=== PATIENT | male | born 1940 | race Caucasian/White ===

== ENCOUNTER 2021-11-12 17:40 | Emergency (ER) | payer MEDICARE, SELFPAY ==
[2021-11-12 17:50] VITALS: BP 121/74; PULSE 76; RESP 18; TEMP 36.8; O2SAT 98; BMI 30.3
--- NOTE | 2021-11-12 18:08 | HMH.EDUTC ---
[facility] [place] Clinical Impression: Sinusitis Qualifiers: Sinusitis location: unspecified location Chronicity: acute Recurrence: non-recurrent Qualified Code(s): J01.90 - Acute sinusitis, unspecified Disposition: Home, Self-Care Condition on Discharge: Good Instructions: DI for Sinusitis Additional Instructions: Drink plenty of fluids. Take tylenol or ibuprofen for pain or fever. Take the medications as directed. Follow up with your regular doctor. GO TO THE ER FOR ANY WORSENING SYMPTOMS Don't start the oral steroids until tomorrow, since you had the shot here today. Prescriptions: Benzonatate [Benzonatate 100mg cap] 100 mg PO TIDP PRN #30 cap PRN Reason: Cough Transmission Status: Received by [id number] methylPREDNISolone [Medrol] 4 mg PO DIRECTED 6 Days #21 packet Transmission Status: Received by [id number] Azithromycin [Z-Yash 250mg Tab*] 250 mg PO UD DOSE PK #6 tab Transmission Status: Received by [id number] Referrals: Lauren Sprague MD [Primary Care Provider] - Time of Disposition: 18:44 Medical Decision Making - Medical Records Medical records reviewed: No: I reviewed the patient's medical records. - Yaakov Inquiry Pt receiving controlled substance: No Vital Signs: 11/12/21 17:50 11/12/21 18:09 Temperature 98.2 F 98.2 F Temperature Source Oral Pulse Rate 76 Pulse Rate [Right Brachial] 76 Respiratory Rate 18 18 Blood Pressure 121/74 Blood Pressure [Right Arm] 121/74 Blood Pressure Mean [Right Arm] 89 Blood Pressure Source [Right Arm] Automatic Cuff Blood Pressure Position [Right Arm] Sitting 02 Sat by Pulse Oximetry 98 Oxygen Delivery Method Room Air Orders (Tests/Meds): ED MEDICATIONS Discontinued Medications Generic Name Dose Route Start Last Admin Trade Name Freq PRN Reason Stop Dose Admin Dexamethasone Sodium Phosphate 8 mg 11/12/21 18:17 11/12/21 18:25 Dexamethasone 4mg/Ml 1ml Vial IM 11/12/21 18:18 8 mg ONCE ONE Administration [facility] [place] - General Stated complaint: sore throat,runny nose cough kelley Time Seen by Provider: 11/12/21 18:08 Mode of Arrival: Ambulatory Source of Information: Patient Limitations: No Limitations Description of Symptoms (Recalled from Triage Doc. by RN): PATIENT C/O COUGH, CONGESTION, AND RUNNY NOSE X 3 DAYS HEENT Symptoms (Recalled from RN notes): Yes Resp Symptoms (Recalled from RN notes): Yes Skin Symptoms (Recalled from RN notes): No MS Symptoms (Recalled from RN notes): No Functional Status (Recalled from RN notes): WNL - History of Present Illness Provider Complaint: He c/o sinus congestion and a cough for the past 3 days. Onset (ago): minute(s) - Related Data Previous Rx's Medication Instructions Recorded Azithromycin [Z-Yash 250mg Tab*] 250 mg PO UD DOSE PK #6 tab 11/12/21 Benzonatate [Benzonatate 100mg 100 mg PO TIDP PRN #30 cap 11/12/21 cap] methylPREDNISolone [Medrol] 4 mg PO DIRECTED 6 Days #21 11/12/21 packet Allergies Allergy/AdvReac Type Severity Reaction Status Date / Time No Known Allergies Allergy Verified 11/12/21 18:07 - Worker's Comp Is this a Worker's Comp case?: No [facility] [place] History - Hepatitis A Screen Attestation statement:: This patient has been screened for Hepatitis A risk factors. I have reviewed the patient's past medical history: Yes - Social History Alcohol Intake: never Occupational Status: other ROS Obtained: Yes All systems reviewed & no additional complaints - Constitutional Constitutional: Reports chills, Denies fever(s), Reports poor appetite, Reports malaise - Eyes Eyes: Denies eye discharge - ENT Ears, Nose, Mouth, and Throat: Reports as per HPI - Cardiovascular Cardiovascular: Denies chest pain - Respiratory Respiratory: Denies chest congestion, Reports cough Physical Exam - General General appearance: alert, in no apparent distress - Head Head exam: atraumat
[2021-11-12 18:09] VITALS: BP 121/74; PULSE 76; RESP 18; TEMP 36.8; O2SAT 98
== END 2021-11-12 18:48 | disposition home or self-care (01) ==
PROVIDERS: Emergency Provider Nurse Practitioner Family; PCP Family Medicine
DX: J01.90 Acute sinusitis, unspecified (principal)
CPT/HCPCS: 96372; 99212; G0463

== ENCOUNTER 2021-11-26 02:29 | Emergency (ER) | payer MEDICARE, SELFPAY ==
[2021-11-26] VITALS (7 sets, daily range): BP systolic 116–134; BP diastolic 60–80; PULSE 69–82; RESP 15–19; TEMP 36.7–36.8; O2SAT 98–100; BMI 30.8
--- NOTE | 2021-11-26 02:46 | ECG_ITS ---
APPROVED REPORT Exam: Resting ECG HR:76 bpm ECG Measurements Heart Rate 76 AXES NC 213 P 14 QRSd 140 QRS 2 QT 408 T -1 QTc 438 Conclusion SINUS RHYTHM WITH FIRST DEGREE AV BLOCK RIGHT BUNDLE BRANCH BLOCK [120+ ms QRS DURATION, UPRIGHT V1, 40+ ms S IN I/aVL/V4/V5/V6] ABNORMAL ECG UNCONFIRMED REPORT Electronically signed by : Dioni Sauer MD 11/26/2021 09:48:16
--- NOTE | 2021-11-26 02:55 | XR_ITS ---
PROCEDURE INFORMATION: Exam: XR Chest Exam date and time: 11/26/2021 3:17 AM Age: 81 years old Clinical indication: Cough; Sternal or substernal pain; Additional info: Cough, chest pain TECHNIQUE: Imaging protocol: XR of the chest. Views: 1 view. COMPARISON: No relevant prior studies available. FINDINGS: Lungs: Nonspecific bibasilar opacities, favoring atelectasis or pneumonia. Pleural spaces: No pleural effusion. No pneumothorax. Heart/Mediastinum: Unremarkable cardiomediastinal silhouette. Bones/joints: No acute osseous findings. IMPRESSION: Nonspecific bibasilar opacities, favoring atelectasis or pneumonia. Recommend imaging follow-up until complete resolution.
[2021-11-26 03:06] LABS: Coronavirus 19, PCR Not Detected (NotDetected); Influenza A, PCR Not Detected (NotDetected); Influenza B, PCR Not Detected (NotDetected)
[2021-11-26 03:06] LABS: Basophils # 0.3 K/mm3 (0-0.2); Basophils % 2.6 % (0.1-2.0); Eosinophils # 0.1 K/mm3 (0.0-0.4); Eosinophils % 0.4 % (0.1-12.0); Hemoglobin 12.8 g/dL (14.1-18.0); Lymphocytes # 1.4 K/mm3 (0.7-4.5); Lymphocytes % 11.5 % (10-50); Mean Corpuscular HGB Conc 33.8 g/dL (31.8-35.4); Mean Corpuscular Hemoglobin 30.2 pg (27.0-31.2); Mean Corpuscular Volume 89.4 fl (80-94); Mean Platelet Volume 7.2 fl (7.4-10.4); Monocytes # 0.7 K/mm3 (0.1-1.0); Monocytes % 5.8 % (1.7-9.3); Neutrophils # 9.7 K/mm3 (1.8-7.8); Neutrophils % 79.6 % (37.0-80.0); Platelet Count 202 K/mm3 (142-424); Red Blood Count 4.25 M/mm3 (4.60-6.20); Red Cell Distribution Width 14.4 % (11.5-17.5); White Blood Count 12.1 K/mm3 (4.8-10.8)
[2021-11-26 03:08] LABS: Chloride 100 mmol/L (98-107); Potassium 4.4 mmoL/L (3.5-5.1); Sodium 131 mmol/L (136-145)
[2021-11-26 03:10] LABS: Alanine Aminotransferase 32 U/L (12-78); Aspartate Amino Transferase 67 U/L (17-59); Bilirubin,Total 0.3 mg/dl (0.2-1.3); Blood Urea Nitrogen 68 mg/dl (9-20); Creatinine Clearance Estimated 20 mL/min (50-200); Estimated Glomerular Filt Rate 13 ml/min (>60)
[2021-11-26 03:11] LABS: Albumin Level 4.1 g/dl (3.5-5.0); Albumin/Globulin Ratio 1.3 (1.1-1.8); Alkaline Phosphatase 88 U/L (38-126); Anion Gap 15.4 mEq/L (5-15); Carbon Dioxide 20 mmol/L (22.0-30.0); Globulin 3.2 g/dL (1.3-3.2); Glucose 126 mg/dl (74-100); Lipase 319 U/L (23-300); Total Protein,Serum 7.3 g/dl (6.3-8.2)
--- NOTE | 2021-11-26 03:11 | HMH.EDGENADL ---
ED Disposition Clinical Impression: NSTEMI (non-ST elevated myocardial infarction), ESCOBAR (acute kidney injury) Disposition: Xfer Short-Term Hosp Condition on Discharge: Good Referrals: Lauren Sprague MD [Primary Care Provider] - - Critical Care Critical Care Time: No Attestation: On 11/26/21, the high probability of a clinically significant, sudden or life threatening deterioration of the following system(s) required my full and direct attention, intervention and personal management. The time I documented below is in addition to time spent performing reported procedures but includes the following listed in this critical care notation. Medical Decision Making - Medical Records Medical records reviewed: Yes: I reviewed the patient's medical records. - Yaakov Inquiry Pt receiving controlled substance: No Vital Signs: 11/26/21 02:47 11/26/21 03:04 11/26/21 03:34 Temperature 98.2 F Temperature Source Oral Pulse Rate 74 75 Pulse Rate [Apical] 82 Respiratory Rate 18 18 Blood Pressure 116/60 126/66 Blood Pressure [Right Arm] 125/70 Blood Pressure Mean 74 Blood Pressure Mean [Right Arm] 88 Blood Pressure Source [Right Arm] Automatic Cuff Blood Pressure Position [Right Arm] Sitting 02 Sat by Pulse Oximetry 98 98 99 Oxygen Delivery Method Room Air 11/26/21 03:36 11/26/21 04:19 11/26/21 04:34 Temperature Temperature Source Pulse Rate 75 69 73 Pulse Rate [Apical] Respiratory Rate 18 15 19 Blood Pressure 117/64 134/80 117/74 Blood Pressure [Right Arm] Blood Pressure Mean 76 94 88 Blood Pressure Mean [Right Arm] Blood Pressure Source [Right Arm] Blood Pressure Position [Right Arm] 02 Sat by Pulse Oximetry 99 99 100 Oxygen Delivery Method - Lab Data Lab Results 11/26/21 02:48: WBC 12.1 H, RBC 4.25 L, Hgb 12.8 L, Hct 38.0 L, MCV 89.4, MCH 30.2, MCHC 33.8, RDW 14.4, Plt Count 202, MPV 7.2 L, Neut % (Auto) 79.6, Lymph % (Auto) 11.5, [place] % (Auto) 5.8, Eos % (Auto) 0.4, Baso % (Auto) 2.6 H, Neut # (Auto) 9.7 H, Lymph # (Auto) 1.4, [place] # (Auto) 0.7, Eos # (Auto) 0.1, Baso # (Auto) 0.3 H 11/26/21 02:48: Sodium 131 L, Potassium 4.4, Chloride 100, Carbon Dioxide 20 L, Anion Gap 15.4 H, BUN 68 H, Creatinine 4.50 H, Estimated Creat Clear 20, Estimated GFR 13 L*, Est GFR ( Amer) 15 L*, Glucose 126 H, Calcium 10.0, Total Bilirubin 0.3, AST 67 H, ALT 32, Alkaline Phosphatase 88, Troponin I 3.51 H, Total Protein 7.3, Albumin 4.1, Globulin 3.2, Albumin/Globulin Ratio 1.3, Lipase 319 H 11/26/21 02:56: SARS-CoV-2 (PCR) Not detected, Influenza A Untype (PCR) Not detected, Influenza Type B (PCR) Not detected 11/26/21 03:20: Lactate 0.7 11/26/21 03:30: Urine Color Yellow, Urine Appearance Sl cloudy, Urine pH 5.0, Ur Specific [place] >= 1.030, Urine Protein 1+, Urine Glucose (UA) Negative, Urine Ketones Negative, Urine Blood 3+, Urine Nitrate Negative, Urine Bilirubin Negative, Urine Urobilinogen 0.2, Ur Leukocyte Esterase Negative, Urine RBC 5-10, Urine WBC 3-5, Hyaline Casts 5-10, Coarse Granular Casts 5-10 11/26/21 04:45: Troponin I 2.00 H Result diagrams: 11/26/21 02:48 11/26/21 02:48 Orders (Tests/Meds): ED MEDICATIONS Generic Name Dose Route Start Last Admin Trade Name Freq PRN Reason Stop Dose Admin Clopidogrel Bisulfate 75 mg 11/27/21 00:01 Clopidogrel 75mg Tab PO 12/04/21 00:00 ONCE YAYO Sodium Chloride 500 mls @ 999 mls/hr 11/26/21 03:00 11/26/21 03:03 Sod Chlor 0.9% 1000ml Bag IV 11/26/21 03:30 999 mls/hr .Q31M YAYO Administration Heparin Sodium/Dextrose 500 mls @ 20 mls/hr 11/26/21 05:30 Heparin 25,000 Units In D5w 500ml Premix IV 12/26/21 05:29 .Q25H YAYO 1,000 UNITS/HR Discontinued Medications Generic Name Dose Route Start Last Admin Trade Name Freq PRN Reason Stop Dose Admin Aspirin 324 mg 11/26/21 02:58 11/26/21 03:02 Aspirin 81mg Chewable Tablet PO 11/26/21 02:59 324 mg ONCE ONE Administration [facility]
[2021-11-26 03:14] LABS: GFR (African American) 15 ML/MIN (>60)
[2021-11-26 03:24] LABS: Troponin I 3.51 ng/ml (0.00-0.034)
--- NOTE | 2021-11-26 03:25 | ECG_ITS ---
APPROVED REPORT Exam: Resting ECG HR:72 bpm ECG Measurements Heart Rate 72 AXES CO 231 P 24 QRSd 134 QRS 56 QT 411 T 15 QTc 435 Conclusion SINUS RHYTHM WITH FIRST DEGREE AV BLOCK RIGHT BUNDLE BRANCH BLOCK [120+ ms QRS DURATION, UPRIGHT V1, 40+ ms S IN I/aVL/V4/V5/V6] ABNORMAL ECG UNCONFIRMED REPORT Electronically signed by : Dioni Sauer MD 11/26/2021 09:48:13
--- NOTE | 2021-11-26 03:32 | PC.NURSE ---
Dr. Mireles on phone with Dr. Salazar
[2021-11-26 03:33] LABS: Lactic Acid 0.7 mmol/L (0.7-2.1)
[2021-11-26 03:35] LABS: Microscopic, Urine URINE MICROSCOPIC (MICROSCOPIC)
--- NOTE | 2021-11-26 03:39 | CT_ITS ---
PROCEDURE INFORMATION: Exam: CT Chest Without Contrast; Diagnostic Exam date and time: 11/26/2021 3:52 AM Age: 81 years old Clinical indication: Pain; Shortness of breath and other: General weakness, left-sided; Additional info: Epigastric pain, kidney injury, obstructive uropat TECHNIQUE: Imaging protocol: Diagnostic computed tomography of the chest without contrast. Radiation optimization: All CT scans at this facility use at least one of these dose optimization techniques: automated exposure control; mA and/or kV adjustment per patient size (includes targeted exams where dose is matched to clinical indication); or iterative reconstruction. COMPARISON: CR XR CHEST PORTABLE 11/26/2021 3:17 AM FINDINGS: Lungs: Probably dependent changes in the lung bases. No definite focal acute airspace consolidation. Pleural spaces: No pneumothorax. No pleural effusion. Heart: Coronary artery disease. Mild cardiomegaly. Lymph nodes: No axillary or significant intrathoracic lymphadenopathy by size criteria. Vasculature: Atherosclerotic calcifications in the aorta. No thoracic aortic aneurysm. Bones/joints: No acute fracture. Soft tissues: Grossly unremarkable. Other findings: Please refer to separate CT abdomen pelvis report for additional findings. IMPRESSION: Probably dependent changes in the lung bases. No definite focal acute airspace consolidation.
--- NOTE | 2021-11-26 03:39 | CT_ITS ---
PROCEDURE INFORMATION: Exam: CT Abdomen And Pelvis Without Contrast Exam date and time: 11/26/2021 3:55 AM Age: 81 years old Clinical indication: Abdominal pain; Epigastric; Additional info: Epigastric pain, kidney injury, obstructive uropat TECHNIQUE: Imaging protocol: Computed tomography of the abdomen and pelvis without contrast. Radiation optimization: All CT scans at this facility use at least one of these dose optimization techniques: automated exposure control; mA and/or kV adjustment per patient size (includes targeted exams where dose is matched to clinical indication); or iterative reconstruction. COMPARISON: CT CHEST WO CON 11/26/2021 3:52 AM FINDINGS: Liver: Small hypodensity in the left hepatic lobe. Gallbladder and bile ducts: No calcified stones. Pancreas: No peripancreatic inflammatory changes. Spleen: Multiple calcified granulomas in the spleen. Adrenal glands: No mass. Kidneys and ureters: No hydronephrosis. Too small to characterize hypodensities in the kidneys and small cyst in the right kidney. Stomach and bowel: Moderate amount of stool in the colon. Appendix: Unremarkable appendix. Intraperitoneal space: No free air. No ascites. Vasculature: Extensive atherosclerotic calcifications. Lymph nodes: No grossly enlarged lymph nodes. Urinary bladder: Funes catheter balloon in the urinary bladder. Reproductive: Enlarged prostate. Bones/joints: No acute fracture. No suspicious osseous lesion. Soft tissues: No obvious suspicious lesion. IMPRESSION: No acute findings. COMMENTS: Consistent with the [employer]'s Incidental Findings Committee white paper (J Am Yamilet Radiol 2018): Any incidental renal lesion less than 1 cm or classified as too small to characterize, or any incidental cystic renal lesion characterized as simple-appearing, is likely benign. No follow-up imaging is recommended for these lesions per consensus recommendations based on imaging criteria.
[2021-11-26 03:46] LABS: Appearance,Urine SL CLOUDY (Clear); Bilirubin,Urine Negative (Negative); Blood, Urine 3+ (Negative); Color,Urine YELLOW (Yellow); Glucose,Urine (UA) Negative (Negative); Ketones,Urine Negative (Negative); Leukocyte Esterase,Urine Negative (Negative); Nitrate,Urine Negative (Negative); Protein,Urine 1+ (Negative); Specific Gravity, Urine >= 1.030 (1.005-1.030); Urobilinogen,Urine 0.2 EU/dl (0.2)
--- NOTE | 2021-11-26 04:14 | ECG_ITS ---
APPROVED REPORT Exam: Resting ECG HR:73 bpm ECG Measurements Heart Rate 73 AXES GA 197 P -14 QRSd 140 QRS 69 QT 418 T 46 QTc 443 Conclusion SINUS RHYTHM RIGHT BUNDLE BRANCH BLOCK [120+ ms QRS DURATION, UPRIGHT V1, 40+ ms S IN I/aVL/V4/V5/V6] ST DEPRESSION, CONSIDER SUBENDOCARDIAL INJURY [0.1+ mV ST DEPRESSION] ABNORMAL ECG UNCONFIRMED REPORT Electronically signed by : Dioni Sauer MD 11/29/2021 21:15:03
--- NOTE | 2021-11-26 04:52 | PC.NURSE ---
Spoke to Alex at [place] transfer center, information given regarding transfer to tele bed, will call back with availability
--- NOTE | 2021-11-26 05:18 | PC.NURSE ---
Dr. Mireles on phone with Dr. Ricardo at [facility]
--- NOTE | 2021-11-26 05:23 | PC.NURSE ---
[facility]ulted [facility] regarding heparin dosing. Bolus of 4000 U followed by a drip of 1000 u/hr (20 ml/hr).
--- NOTE | 2021-11-26 05:29 | PC.NURSE ---
patient accepted to [facility] by Dr. Ricardo
[2021-11-26 06:00] LABS: INR 1.05 (0.9-1.1); Prothrombin Time 11.8 seconds (10.1-12.5)
== END 2021-11-26 06:47 | disposition short-term general hospital (02) ==
PROVIDERS: Emergency Provider Emergency Medicine; PCP Family Medicine
DX: I21.4 Non-ST elevation (NSTEMI) myocardial infarction (principal); N17.9 Acute kidney failure, unspecified; E78.5 Hyperlipidemia, unspecified
CPT/HCPCS: 51702; 71045; 71250; 74176; 80053; 81001; 83605; 83690; 84484; 85025; 85610; 93005; 96365; 96375; 99285; C9803; U0003; U0005

== ENCOUNTER → 2022-01-13 07:38 | Outpatient (CLI) | payer MEDICARE, SELFPAY | PROVIDERS: PCP Family Medicine; Visit Provider Surgery Vascular Surgery | DX: Z01.812 Encounter for preprocedural laboratory examination (principal); Z20.822 Contact with and (suspected) exposure to COVID-19 | CPT/HCPCS: C9803; U0003; U0005 ==

== ENCOUNTER → 2022-03-09 15:10 | Outpatient (CLI) | payer MEDICARE, SELFPAY | PROVIDERS: PCP Family Medicine; Visit Provider Family Medicine | DX: Z01.818 Encounter for other preprocedural examination (principal) | CPT/HCPCS: C9803; U0003; U0005 ==

== ENCOUNTER 2025-03-05 16:13 | Emergency (ER) | payer MEDICARE, OTHER, SELFPAY ==
[2025-03-05] VITALS (9 sets, daily range): BP systolic 99–123; BP diastolic 51–68; PULSE 59–75; RESP 14–20; TEMP 36.1–36.8; O2SAT 93–100; BMI 21.7
--- NOTE | 2025-03-05 16:25 | HMH.EDGENADL ---
Discharge Plan Disposition Patient Disposition: Xfer Other Condition: Fair Prescriptions Prescriptions: No Action lisinopril 10 MG tablet 20 mg PO DAILY rosuvastatin 40 MG tablet 40 mg PO DAILY Referrals Follow up/Referrals: Lauren Sprague MD [Primary Care Provider, Medical] - See instructions Clinical Impressions Clinical Impression: ESCOBAR (acute kidney injury), Acute renal failure, Sepsis, Adult failure to thrive, Malignancy Stand Alone Forms Stand Alone Forms: Transfer Record - ED Print Language Print Language: Fijian Discharge ED Provider: Jimbo Nickerson General Adult HPI <PILO Boyle - Last Filed: 03/05/25 20:38> General Chief complaint: Weakness Stated complaint: Unable to eat,Difficulty swollowing Time Seen by Provider: 03/05/25 16:19 Mode of Arrival: Ambulatory Source of Information: Patient and Relative Limitations: No Limitations History of Present Illness HPI narrative: 84-year-old male presents the emergency department accompanied by his grandson for a 15 to 16-day history of decreased appetite dysphagia, weight loss, failure to thrive, generalized weakness, patient is somewhat of a poor historian GCS of 14, some confusion with the date and time, unsure if this is baseline, patient's grandson at the bedside, states that he has been acting weird , he denies any fever chills chest pain shortness of breath nausea vomiting, does not constipation for the last 2 weeks, denies any urinary type symptomatology, does self cath, denies any nausea or vomiting, 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 Initial triage vitals are unremarkable. Please note that above description of symptoms, in this electronic medical record under categorization of recalled from ER triage doctor by RN are reflective of an initial nursing assessment, however, is not reflective of my full history and physical exam that was personally taken and clarified. Consequentially, this preceding description of symptoms, which may include the patient's categorized chief complaint in the EMR, do not reflect my personal clinical impression, and the ultimate description of history of present illness and patient stated complaints should be deferred to this section of the note. Unless stated otherwise or congruent with this section of the note, additional signs, symptoms, or incongruence should be interpreted as inaccurate with my clinical impression. Onset (ago): week(s) Related Data Home Medications ?Medication ?Instructions ?Recorded ?Confirmed lisinopril 10 mg tablet 20 mg PO DAILY Hypertension 11/26/21 11/26/21 rosuvastatin 40 mg tablet 40 mg PO DAILY High cholesterol 11/26/21 11/26/21 Allergies Allergy/AdvReac Type Severity Reaction Status Date / Time No Known Allergies Allergy Verified 11/12/21 18:07 [facility] <PILO Boyle - Last Filed: 03/05/25 20:38> [facility] Disclaimer: The information contained in this section may have been updated after the patient was seen, as this information can be updated by other users. Social History Smoking Status: Former smoker alcohol intake: never current occupational status: other Travel in the last 8 weeks?: None Have you lived/traveled outside US in past 30 days?: No Contact w/someone who lives/traveled outside US past 30 days?: No Exposure to someone with infectious disease in past 14 days?: No Do you have a fever (greater than 100.4 F or 38 C)?: No Have you tested positive for COVID-19?: No Exposed to someone with COVID-19 in past 14 days?: No Do you have a sore throat?: No Do you have a cough?: No Do you have any weakness?: No Do you have any diarrhea?: No Are you experiencing any unusual bleeding?: No Do you have any muscle aches/pain?: No Do you have any abdominal pain?: No Are you experiencing loss of taste or smell?: No Other Medical History Have you received the Flu Vaccine for this season: Yes Have you received the Pneumonia Vaccine: Yes <PILO Boyle - Last Filed: 03/05/25 20:38> ROS Obtained: Yes All systems reviewed & no additional complaints except as documented Physical Exam <PILO Boyle - Last Filed: 03/05/25 20:38> General General appearance: alert, in no apparent distress and cachectic Head Head exam: atraumatic and normocephalic Eye Eye exam: Present PERRL and EOMI ENT ENT exam: Present mucous membranes moist Neck Neck exam: Present normal inspection Chest Chest inspection: Present normal inspection and symmetric chest wall rise Respiratory Respiratory exam: Present normal lung sounds bilaterally; Absent respiratory distress, wheezes or stridor Cardiovascular Cardiovascular exam: Present regular rate and normal rhythm Abdominal Exam Abdominal exam: Present soft; Absent tenderness, guarding, rebound or rigidity Extremities Exam Extremities exam: Present normal inspection Neurological Exam Neurological exam: Present alert and other (GCS 14, syncopes and about date and time, moves extremities to command, but does have generalized/global weakness noted.); Absent oriented X3 Psychiatric Psychiatric exam: Present normal affect Skin Skin exam: Present warm and dry Medical Decision Making <PILO Boyle - Last Filed: 03/05/25 20:38> Medical Records Medical records reviewed: Yes I reviewed the patient's medical records. Screening: Per USPSTF and CDC recommendations, given the prevalence of disease in our region, it is our hospital?s policy to screen for HIV and viral Hepatitis for all patients aged 18 and over and those with ongoing risk factors. Yaakov Inquiry Pt receiving controlled substance: No Yaakov was queried for this patient: No Vital Signs: 03/05/25 16:26 03/05/25 16:33 03/05/25 17:00 Temperature 97 F L Temperature Source Axillary Pulse Rate Pulse Rate [Right] 72 Respiratory Rate 20 Blood Pressure 105/60 L 104/57 L Blood Pressure [Right Arm] 109/68 L Blood Pressure Mean 75 71 Blood Pressure Mean [Right Arm] 81 Blood Pressure Source Blood Pressure Position 02 Sat by Pulse Oximetry 98 Oxygen Delivery Method Nasal Cannula 03/05/25 17:31 03/05/25 18:00 03/05/25 18:30 Temperature Temperature Source Pulse Rate 73 72 Pulse Rate [Right] Respiratory Rate 16 19 Blood Pressure 123/66 101/51 L 116/62 Blood Pressure [Right Arm] Blood Pressure Mean 73 73 72 Blood Pressure Mean [Right Arm] Blood Pressure Source Blood Pressure Position 02 Sat by Pulse Oximetry 93 L 100 Oxygen Delivery Method 03/05/25 19:00 03/05/25 19:30 03/05/25 20:36 Temperature 98.2 F Temperature Source Oral Pulse Rate 59 L 75 68 Pulse Rate [Right] Respiratory Rate 16 14 16 Blood Pressure 108/65 L 115/61 99/60 L Blood Pressure [Right Arm] Blood Pressure Mean 77 74 Blood Pressure Mean [Right Arm] Blood Pressure Source Automatic Cuff Blood Pressure Position Sitting 02 Sat by Pulse Oximetry 94 L 94 L Oxygen Delivery Method Room Air Lab Data Lab results reviewed: Yes I reviewed the patient's lab results. Lab Results 03/05/25 16:38: WBC 20.2 H*, RBC 3.53 L, Hgb 10.9 L, Hct 32.9 L, MCV 93.2, MCH 30.9, MCHC 33.1, RDW 14.4, Plt Count 172, MPV 10.6 H, Neut % (Auto) 91.2 H, Lymph % (Auto) 3.4 L, [place] % (Auto) 4.5, Eos % (Auto) 0.1, Baso % (Auto) 0.2, Neut # (Auto) 18.4 H, Lymph # (Auto) 0.7, [place] # (Auto) 0.9, Eos # (Auto) 0.0, Baso # (Auto) 0.0, Sodium 136, Potassium 4.8, Chloride 104, Carbon Dioxide 14 L, Anion Gap 22.8 H, BUN 139 H*, Creatinine 6.30 H, Estimated Creat Clear 9, Estimated GFR 9 L*, Est GFR ( Amer) 10 L*, Glucose 172 H, Uric Acid 7.4, Calcium 10.4 H, Magnesium 2.6 H, Total Bilirubin 0.6, AST 21, ALT 13, Alkaline Phosphatase 112, Lactate Dehydrogenase 231 L, NT-Pro-B Natriuret Pep 1840 H, Total Protein 8.5 H, Albumin 4.4, Globulin 4.1 H, Albumin/Globulin Ratio 1.1, Lipase 81 03/05/25 17:07: VBG pH 7.25 L, VBG pCO2 40.6, VBG pO2 33.2, VBG HCO3 17.4 L, VBG Total CO2 18.7 L, VBG O2 Saturation 59.3, VBG Base Excess -9.8 L, VBG Lactic Acid 1.6, Lactate 1.1 03/05/25 17:43: Urine Color Yellow, Urine Appearance Cloudy, Urine pH 5.5, Ur Specific Butler 1.020, Urine Protein 1+ A, Urine Glucose (UA) Negative, Urine Ketones Negative, Urine Blood 2+ A, Urine Nitrate Positive A, Urine Bilirubin Negative, Urine Urobilinogen 0.2, Ur Leukocyte Esterase 2+ A, Urine RBC 5-10, Urine WBC Tntc, Ur Squamous Epith Cells None, Urine Bacteria 2+ 03/05/25 16:38 03/05/25 16:38 Orders (Tests/Meds): ED MEDICATIONS Discontinued Medications Generic Name Dose Route Start Last Admin Trade Name Freq PRN Reason Stop Dose Admin Sodium Chloride 1,000 mls @ 999 mls/hr 03/05/25 16:54 03/05/25 18:56 Sod Chlor 0.9% 1000ml Bag IV 03/05/25 17:54 Infused .Q1H1M ONE Infusion Piperacillin Sod/Tazobactam 50 mls @ 100 mls/hr 03/05/25 16:55 03/05/25 18:56 Sod 3.375 gm/ Sodium Chloride IV 03/05/25 17:24 Infused ONCE ONE Infusion Vancomycin/PEG/NADA/Lysine/Water 1.5 gm in 300 mls @ 150 mls/hr 03/05/25 17:00 03/05/25 20:22 Vancomycin 1.5gm/300ml (Peg) Premix IV 03/05/25 18:59 Infused ONCE ONE Infusion Miscellaneous 1 each 03/05/25 17:00 Vancomycin Consult Request NOTAPPLIC 04/04/25 16:59 CONSULT PHARMACY [facility]O ORDERS Category Date Time Status CT abdomen pelvis wo con Stat Cat Scan 03/05/25 18:[address] chest wo con Stat Cat Scan 03/05/25 18:[address] head/brain wo con Stat Cat Scan 03/05/25 18:[address] soft tissue neck wo con Stat Cat Scan 03/05/25 18:23 Completed Complete Blood Count Auto Diff Stat Lab 03/05/25 16:38 Completed Comprehensive Metabolic Panel Stat Lab 03/05/25 16:38 Completed HIV Combo Stat Lab 03/05/25 16:38 Received Hepatitis C Ab Qual. W/ RFX Stat Lab 03/05/25 16:38 Received LDH [Lactate Dehydrogenase] Stat Lab 03/05/25 16:38 Completed Lactic Acid Stat Lab 03/05/25 17:07 Completed Lipase Stat Lab 03/05/25 16:38 Completed Magnesium Stat Lab 03/05/25 16:38 Completed NT Pro Brain Natriuretic Pep. Stat Lab 03/05/25 16:38 Completed Uric Acid Stat Lab 03/05/25 16:38 Completed Urinalysis and Microscopic Stat Lab 03/05/25 17:43 Completed Urinalysis and Microscopic Stat Lab 03/05/25 17:50 Ordered Blood Culture Stat Micro 03/05/25 17:12 Received Urine Culture Stat Micro 03/05/25 17:43 Received VBG [Venous Blood Gas] Stat RT 03/05/25 17:07 Completed Medical Decision Narrative: 84-year-old male presents to the emergency department with 15 days of constipation, failure to thrive dysphagia, differential diagnose include but not limited to, cardiac arrhythmia electrolyte disturbance, malignancy, soft tissue mass, acute hypovolemia, failure to thrive among others. I discussed this patient's case with the attending physician Will obtain EKG, CT head with and without contrast, CT soft tissue neck with contrast, VBG, CTA chest with without contrast PE protocol, CT and pelvis with contrast, will obtain basic labs, LDH lactic acid lipase low magnesium proBNP uric acid level and urinalysis. CBC is notable for leukocytosis of 12.2, hemoglobin hematocrit 10.9/32.9 respectively, erythrocytopenia at 3.53. Will give patient 1 L IV NS, will give patient IV Zosyn 3.375, IV vancomycin pharmacy to dose, as well as obtain blood cultures due to leukocytosis, and unsure of any infection as source, will not give full sepsis bolus at this time due to patient's data deficient history of CHF, concern for pulmonary edema, in the setting of previous CABG/poor historian. LDH 231 VBG is notable for pH is 7.25, bicarb is 17.4, CO2 within normal limits. BUN is significantly elevated at 139, creatinine is acutely elevated at 6.3, uric acid within normal limits, GFR is 9, and anion gap of 22.8, unsure of chronicity as patient never been here before, was also notified by nursing staff that the patient had 200 mL in the urinary bladder, difficult with In-N-Out cath, thus will anchor Funes. Patient is hypercalcemic at 10.4 No lactic acidosis I will request patient's hematology oncology records from [facility]. UA is notable for 1+ proteinuria, 2+ hematuria, positive nitrites, 2+ leukocyte esterase. At this time due to patient's kidney function, will defer to pharmacy to dose vancomycin. Will also hold off on contrasted imaging studies at this time due to patient's poor kidney function. hypermagnesium at 2.6. Per nursing staff after touching base with pharmacy, pharmacy will go ahead and give IV vancomycin and trend creatinine level/trough levels of vancomycin after the initial dose. Will switch patient's contrasted imaging studies to noncontrasted imaging studies in the setting of renal failure. proBNP is moderately elevated at 1840. I discussed this patient's case with the [place] transfer physician at approximately 6:50 PM, he graciously except the transfer to the [facility] for higher level of care, will call back with a bed assignment. I reviewed the patient's CT head without contrast along the corresponding radiologic report, no evidence of intracranial metastases by nocturnal interest CT, pre and postcontrast brain MRI would allow more sensitive/specific assessment if clinically indicated, no acute cranial process, no intracranial hemorrhage or mass effect, atrophy and microvascular changes consistent with advanced age, small chronic cerebellar infarcts, severe calcific air arthrosclerosis, bilaterally mildly displaced nasal bone fractures possible chronic given the absence of local soft tissue swelling correlate clinically. I reviewed the patient's CT soft tissue neck without contrast along the corresponding radiologic report, no acute findings, mildly displaced bilateral nasal bone fractures probably chronic given lack of adjacent soft tissue swelling although correlate clinically and additional nonemergent findings. 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 I reviewed the patient's CT chest without contrast along the corresponding radiologic report no CT evidence of metastatic disease to the chest EMS transport here to transfer patient to [facility] for higher level of care at 8:35 PM, patient and family are in agreement with current treatment plan/transfer plan. <Jimbo Nickerson MD - Last Filed: 03/05/25 21:38> Vital Signs: 03/05/25 16:26 03/05/25 16:33 03/05/25 17:00 Temperature 97 F L Temperature Source Axillary Pulse Rate Pulse Rate [Right] 72 Respiratory Rate 20 Blood Pressure 105/60 L 104/57 L Blood Pressure [Right Arm] 109/68 L Blood Pressure Mean 75 71 Blood Pressure Mean [Right Arm] 81 Blood Pressure Source Blood Pressure Position 02 Sat by Pulse Oximetry 98 Oxygen Delivery Method Nasal Cannula 03/05/25 17:31 03/05/25 18:00 03/05/25 18:30 Temperature Temperature Source Pulse Rate 73 72 Pulse Rate [Right] Respiratory Rate 16 19 Blood Pressure 123/66 101/51 L 116/62 Blood Pressure [Right Arm] Blood Pressure Mean 73 73 72 Blood Pressure Mean [Right Arm] Blood Pressure Source Blood Pressure Position 02 Sat by Pulse Oximetry 93 L 100 Oxygen Delivery Method 03/05/25 19:00 03/05/25 19:30 03/05/25 20:36 Temperature 98.2 F Temperature Source Oral Pulse Rate 59 L 75 68 Pulse Rate [Right] Respiratory Rate 16 14 16 Blood Pressure 108/65 L 115/61 99/60 L Blood Pressure [Right Arm] Blood Pressure Mean 77 74 Blood Pressure Mean [Right Arm] Blood Pressure Source Automatic Cuff Blood Pressure Position Sitting 02 Sat by Pulse Oximetry 94 L 94 L Oxygen Delivery Method Room Air Lab Data Lab Results 03/05/25 16:38: WBC 20.2 H*, RBC 3.53 L, Hgb 10.9 L, Hct 32.9 L, MCV 93.2, MCH 30.9, MCHC 33.1, RDW 14.4, Plt Count 172, MPV 10.6 H, Neut % (Auto) 91.2 H, Lymph % (Auto) 3.4 L, [place] % (Auto) 4.5, Eos % (Auto) 0.1, Baso % (Auto) 0.2, Neut # (Auto) 18.4 H, Lymph # (Auto) 0.7, [place] # (Auto) 0.9, Eos # (Auto) 0.0, Baso # (Auto) 0.0, Sodium 136, Potassium 4.8, Chloride 104, Carbon Dioxide 14 L, Anion Gap 22.8 H, BUN 139 H*, Creatinine 6.30 H, Estimated Creat Clear 9, Estimated GFR 9 L*, Est GFR ( Amer) 10 L*, Glucose 172 H, Uric Acid 7.4, Calcium 10.4 H, Magnesium 2.6 H, Total Bilirubin 0.6, AST 21, ALT 13, Alkaline Phosphatase 112, Lactate Dehydrogenase 231 L, NT-Pro-B Natriuret Pep 1840 H, Total Protein 8.5 H, Albumin 4.4, Globulin 4.1 H, Albumin/Globulin Ratio 1.1, Lipase 81 03/05/25 17:07: VBG pH 7.25 L, VBG pCO2 40.6, VBG pO2 33.2, VBG HCO3 17.4 L, VBG Total CO2 18.7 L, VBG O2 Saturation 59.3, VBG Base Excess -9.8 L, VBG Lactic Acid 1.6, Lactate 1.1 03/05/25 17:43: Urine Color Yellow, Urine Appearance Cloudy, Urine pH 5.5, Ur Specific [place] 1.020, Urine Protein 1+ A, Urine Glucose (UA) Negative, Urine Ketones Negative, Urine Blood 2+ A, Urine Nitrate Positive A, Urine Bilirubin Negative, Urine Urobilinogen 0.2, Ur Leukocyte Esterase 2+ A, Urine RBC 5-10, Urine WBC Tntc, Ur Squamous Epith Cells None, Urine Bacteria 2+ Orders (Tests/Meds): ED MEDICATIONS Discontinued Medications Generic Name Dose Route Start Last Admin Trade Name Freq PRN Reason Stop Dose Admin Sodium Chloride 1,000 mls @ 999 mls/hr 03/05/25 16:54 03/05/25 18:56 Sod Chlor 0.9% 1000ml Bag IV 03/05/25 17:54 Infused .Q1H1M ONE Infusion Piperacillin Sod/Tazobactam 50 mls @ 100 mls/hr 03/05/25 16:55 03/05/25 18:56 Sod 3.375 gm/ Sodium Chloride IV 03/05/25 17:24 Infused ONCE ONE Infusion Vancomycin/PEG/NADA/Lysine/Water 1.5 gm in 300 mls @ 150 mls/hr 03/05/25 17:00 03/05/25 20:22 Vancomycin 1.5gm/300ml (Peg) Premix IV 03/05/25 18:59 Infused ONCE ONE Infusion Miscellaneous 1 each 03/05/25 17:00 Vancomycin Consult Request NOTAPPLIC 04/04/25 16:59 CONSULT PHARMACY [facility] ORDERS Category Date Time Status CT abdomen pelvis wo con Stat Cat Scan 03/05/25 18:[address] chest wo con Stat Cat Scan 03/05/25 18:[address] head/brain wo con Stat Cat Scan 03/05/25 18:[address] soft tissue neck wo con Stat Cat Scan 03/05/25 18:23 Completed Complete Blood Count Auto Diff Stat Lab 03/05/25 16:38 Completed Comprehensive Metabolic Panel Stat Lab 03/05/25 16:38 Completed HIV Combo Stat Lab 03/05/25 16:38 Received Hepatitis C Ab Qual. W/ RFX Stat Lab 03/05/25 16:38 Received LDH [Lactate Dehydrogenase] Stat Lab 03/05/25 16:38 Completed Lactic Acid Stat Lab 03/05/25 17:07 Completed Lipase Stat Lab 03/05/25 16:38 Completed Magnesium Stat Lab 03/05/25 16:38 Completed NT Pro Brain Natriuretic Pep. Stat Lab 03/05/25 16:38 Completed Uric Acid Stat Lab 03/05/25 16:38 Completed Urinalysis and Microscopic Stat Lab 03/05/25 17:43 Completed Urinalysis and Microscopic Stat Lab 03/05/25 17:50 Ordered Blood Culture Stat Micro 03/05/25 17:12 Received Urine Culture Stat Micro 03/05/25 17:43 Received VBG [Venous Blood Gas] Stat RT 03/05/25 17:07 Completed ECG Data Tracing #1: Independently interpreted by me rate 76, rhythm is regular, right bundle branch block, no ST elevation in anatomical contiguous leads, QTc 433. Medical Decision Narrative: 84-year-old male presents to the emergency department with 15 days of constipation, failure to thrive dysphagia, differential diagnose include but not limited to, cardiac arrhythmia electrolyte disturbance, malignancy, soft tissue mass, acute hypovolemia, failure to thrive among others. I discussed this patient's case with the attending physician Will obtain EKG, CT head with and without contrast, CT soft tissue neck with contrast, VBG, CTA chest with without contrast PE protocol, CT and pelvis with contrast, will obtain basic labs, LDH lactic acid lipase low magnesium proBNP uric acid level and urinalysis. CBC is notable for leukocytosis of 12.2, hemoglobin hematocrit 10.9/32.9 respectively, erythrocytopenia at 3.53. Will give patient 1 L IV NS, will give patient IV Zosyn 3.375, IV vancomycin pharmacy to dose, as well as obtain blood cultures due to leukocytosis, and unsure of any infection as source, will not give full sepsis bolus at this time due to patient's data deficient history of CHF, concern for pulmonary edema, in the setting of previous CABG/poor historian. LDH 231 VBG is notable for pH is 7.25, bicarb is 17.4, CO2 within normal limits. BUN is significantly elevated at 139, creatinine is acutely elevated at 6.3, uric acid within normal limits, GFR is 9, and anion gap of 22.8, unsure of chronicity as patient never been here before, was also notified by nursing staff that the patient had 200 mL in the urinary bladder, difficult with In-N-Out cath, thus will anchor Funes. Patient is hypercalcemic at 10.4 No lactic acidosis I will request patient's hematology oncology records from [facility]. UA is notable for 1+ proteinuria, 2+ hematuria, positive nitrites, 2+ leukocyte esterase. At this time due to patient's kidney function, will defer to pharmacy to dose vancomycin. Will also hold off on contrasted imaging studies at this time due to patient's poor kidney function. hypermagnesium at 2.6. Per nursing staff after touching base with pharmacy, pharmacy will go ahead and give IV vancomycin and trend creatinine level/trough levels of vancomycin after the initial dose. Will switch patient's contrasted imaging studies to noncontrasted imaging studies in the setting of renal failure. proBNP is moderately elevated at 1840. I discussed this patient's case with the [place] transfer physician at approximately 6:50 PM, he graciously except the transfer to the [place] [facility] for higher level of care, will call back with a bed assignment. I reviewed the patient's CT head without contrast along the corresponding radiologic report, no evidence of intracranial metastases by nocturnal interest CT, pre and postcontrast brain MRI would allow more sensitive/specific assessment if clinically indicated, no acute cranial process, no intracranial hemorrhage or mass effect, atrophy and microvascular changes consistent with advanced age, small chronic cerebellar infarcts, severe calcific air arthrosclerosis, bilaterally mildly displaced nasal bone fractures possible chronic given the absence of local soft tissue swelling correlate clinically. I reviewed the patient's CT soft tissue neck without contrast along the corresponding radiologic report, no acute findings, mildly displaced bilateral nasal bone fractures probably chronic given lack of adjacent soft tissue swelling although correlate clinically and additional nonemergent findings. 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 I reviewed the patient's CT chest without contrast along the corresponding radiologic report no CT evidence of metastatic disease to the chest EMS transport here to transfer patient to [facility] for higher level of care at 8:35 PM, patient and family are in agreement with current treatment plan/transfer plan. I was consulted by the SARITA, and we discussed the complexity of the problems being addressed. I approved the treatment and management plan for this patient's care in the emergency department, thus performing a substantive portion of the medical decision making. Jimbo Nickerson MD Critical Care <PILO Boyle - Last Filed: 03/05/25 20:38> Critical Care Time Critical Care Time: No
[2025-03-05 16:43] LABS: Hematocrit 32.9 % (42.0-52.0); Hemoglobin 10.9 g/dL (14.1-18.0); Immature Granulocytes % 0.6 %; Mean Corpuscular HGB Conc 33.1 g/dL (31.8-35.4); Mean Corpuscular Hemoglobin 30.9 pg (27.0-31.2); Mean Corpuscular Volume 93.2 fl (80-94); Nucleated Red Blood Cells % 0 %; Platelet Count 172 K/mm3 (142-424); Red Blood Count 3.53 M/mm3 (4.60-6.20); Red Cell Distribution Width-SD 49.0 fL; White Blood Count 20.2 K/mm3 (4.8-10.8)
--- OUTSIDE RECORDS SUMMARY | 2025-03-05 16:44 | XMS_ITS | Encounter Summary ---
Author Organization Healthcare Address [address] [place] [address] Care Team Providers Care Allied Health Teacher Name Role Phone Rancho Sprague MD Primary Care Provider [phone] Encounter Details Date Type Department Care Team (Late st Contact Info) Description 10/21/2024 Lab Requisition [facility] [address] [place] [address] Will [place] MD [address] [facility] [address] [place] [phone] Diseases of lips Social History Tobacco Use Types Packs/Day Years Used Date Smoking Tobacco: Never Passive Smoke Exposure: Never Smokeless Tobacco: Never Alcohol Use Standard Drinks/Week Comments Not Currently 0 (1 standard drink = 0.6 oz pur e alcohol) PHQ-2 Answer Date Recorded Patient Health Questionnaire-2 Score 0 02/24/2022 Sex and Gender Information Value Date Recorded Sex Assigned at Not on file Legal Sex Male 8:27 PM EDT Gender Identity Not on file Sexual Orientation Not on file documented as of this encounter Functional Status * Calculated C-SSRS Risk Score (Lifetime/Recent) Answer Date of Assessment Author No Risk Indicated 10/21/2024 1:57 PM EDT Jaycee Butts * Question Answer Date of Assessment Author 1. Wish to be (Past 1 Month) No 025 1:57 PM EDT Jaycee Butts 2. Non-Specific Active Suici brenda Thoughts (Past 1 Month) No 10/21/2024 1:57 PM EDT Kike Butts M 6. Suicidal Behavior (Lifetime) No 1:57 PM EDT Jaycee Butts documented as of this encounter Plan of Treatment Not on file documented as of this encounter Procedures Procedure Name Priority Date/Time Associated Diagnosis Comments SURGICAL PATHOLOGY CONSULT Routine 10/21/2024 10:13 AM EDT Diseases of lips documented in this encounter Results * Surgical Pathology Consult (10/21/2024 10:13 AM EDT) Case Report Sugical Pathology Consult Case: [id number] Authorizing Provider: Will [place] MD Collected: 10/21/2024 1013 Ordering Location: [facility] Lab Received: 10/21/2024 1013 Pathologist: Laxmi Vargas MD Specimen: Upper Lip, Right Side, [id number] 10/22/2024 8:15 AM EDT [facility] Final Diagnosis A. SKIN, RIGHT INFERIOR SONA LIP; SHAVE BIOPSY ([id number]; 05/26/24): - SQUAMOUS CELL CARCINOMA, INVASIVE, MODERATELY DIFFERENTIATED. - TUMOR EXTENDS TO DEEP AND PERIPHERAL SHAVE MARGINS. B. SKIN, RIGHT NASAL ALA; SHAVE BIOPSY ([id number]; 05/26/24): - BASAL CELL CARCINOMA WITH ULCERATION EXTENDING TO DEEP AND ONE PERIPHERAL MARGIN. 10/22/2024 8:15 AM EDT [facility] at 0814 EDT Clinical Information K13.0 - Diseases of lips [ICD-10-CM] 10/22/2024 8:15 AM EDT [facility] Gross Description A. [id number] Received along with a corresponding pathology report from [facility] are 2 slide(s) labeled outside case: [id number] collected on 05/26/24. 10/22/2024 8:15 AM EDT [facility] Note: A resident was involved in the service. I attest I examined the relevant preparations for the specimens and confirmed the diagnosis or interpretation. 10/22/2024 8:15 AM EDT [facility] Tissue Upper lip structure / Unknown 10/21/2024 10:13 AM EDT 10/21/2024 10:13 AM EDT us Will [place] MD LAB PATHOLOGY ORDERABLES Fin al Result [facility] [address] [place] [address] documented in this encounter Visit Diagnoses Diagnosis Diseases of lips documented in this encounter Additional Health Concerns Assessment Noted Time A fall risk assessment has been complete d for the patient 10/21/2024 1:57 PM EDT documented as of this encounter Care Teams Allied Health Teacher Relationship Specialty Start Date End Date Rancho Sprague MD [address] [place] [address] [address] [place] [address] PCP - General 01/17/22 documented as of this encounter
--- OUTSIDE RECORDS SUMMARY | 2025-03-05 16:44 | XMS_ITS ---
Author Organization [facility] Address [address] 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 RBBB (right bundle branch block) 03/21/2022 Urinary retention 03/21/2022 Pneumothorax 03/21/2022 Hyperkalemia 03/21/2022 Hypocalcemia 03/21/2022 Constipation 03/21/2022 On deep vein thrombosis (DVT) prophylaxis 2021 Overview (10/04/2022): Diagnosis replaced per IMO Regulatory Update September 30, 2022 Pleural effusion, left 03/16/2022 Acute kidney injury 03/15/2022 GERD (gastroesophageal reflux disease) Acute respiratory failure with hypoxia and hyper capnia 03/13/2022 Anemia 03/13/2022 Thrombocytopenia 03/13/2022 Peripheral arterial disease 03/13/2022 Renal insufficiency 03/13/2022 Benign prostatic hyperplasia 03/13/2022 S/P CABG (coronary artery bypass graft) 03/13/20 Coronary artery disease of n ative artery of [place] heart with stable angina pectoris 01/09/2022 Hyperlipidemia 01/09/2022 Hypertension 01/09/2022 Mesenteric artery stenosis 12/30/2021 Current Treatment and Therapy Plans No current plan information found. Past Treatment and Therapy Plans No past plan information found. Lifetime Dose Tracking * Chemical Lifetime Dose Automatic Entry Manual Entr y Fluoro Time 8.3 minutes 8.3 minutes 0 minutes Air Kerma 1,028 mGy 1,028 mGy 0 mGy Resolved Problems Problem Noted Date Diagnosed Date Resolved Date Coronary artery disease, uns pecified vessel or lesion type, unspecified whether angina present, unspecified whether [place] or transplanted heart 03/13/2022 03/13/2022
--- OUTSIDE RECORDS SUMMARY | 2025-03-05 16:44 | XMS_ITS | Clinical Summary ---
Author Organization [facility] Address [address] [place] [address] Care Team Providers Care Medical Care Manager Name Role Phone Rancho Sprague MD Primary Care Provider [phone] Allergies No known active allergies Medications atorvastatin (Lipitor) 80 MG tablet Take 1 tablet (80 mg total) by mouth every night. 30 tablet 1 2 Active Additional Information Patient not taking.Reported on 10/21/2024 methocarbamol (Robaxin) 500 MG tablet Take 1 tablet (500 mg total) by mouth 3 (three) times a day. 30 tablet 2 Active Additional Information Patient not taking.Reported on 10/21/2024 metoprolol tartrate (Lopressor) 25 MG tablet Take 1 tablet (25 mg total) by mouth 2 (two) times a day. 60 tablet 1 2 Active acetaminophen (Tylenol) 325 MG tablet Take 2 tablets (650 mg total) by mouth every 6 (six) hours if needed for pain. 100 tablet 2 Active rosuvastatin (Crestor) 40 MG tablet Take 0.5 tablets by mouth. 4 Active clopidogrel (Plavix) 75 MG tablet TAKE 1 TABLET BY MOUTH ONCE DAILY FOR HEART 4 Active lisinopril 20 MG tablet take 1 tablet by mouth once daily for hypertension 5 Active lisinopril-hydr oCHLOROthiazide 20-12.5 MG tablet Take 2 tablets by mouth daily. 4 Active pantoprazole (Protonix) 40 MG EC tablet TAKE 1 TABLET BY MOUTH ONCE DAILY IN THE MORNING FOR STOMACH Active Active Problems Problem Noted Date Diagnosed Date [...] artery disease of n ative artery of [place] heart with stable angina pectoris 01/09/2022 Hyperlipidemia 01/09/2022 Hypertension 01/09/2022 Mesenteric artery stenosis 12/30/2021 Resolved Problems Problem Noted Date Diagnosed Date Resolved Date Coronary artery disease, uns pecified vessel or lesion type, unspecified whether angina present, unspecified whether [place] or transplanted heart 03/13/2022 03/13/2022 Family History Medical History Relation Name Comments Anesthesia problems Neg Hx Malig Hyperthermia Neg Hx Social History Tobacco Use Types Packs/Day Years Used Date Smoking Tobacco: Never Passive Smoke Exposure: Never Smokeless Tobacco: Never Tobacco Cessation:Counseling Given: Not Answered Alcohol Use Standard Drinks/Week Comments Not Currently 0 (1 standard drink = 0.6 oz pur e alcohol) PHQ-2 Answer Date Recorded Patient Health Questionnaire-2 Score 0 02/24/2022 Sex and Gender Information Value Date Recorded Sex Assigned at Not on file Legal Sex Male 8:27 PM EDT Gender Identity Not on file Sexual Orientation Not on file Last Filed Vital Signs Vital Sign Reading Time Taken Comments Blood Pressure 127/80 10/21/2024 1:57 PM EDT Pulse 70 10/21/2024 1:57 PM EDT Temperature 36.4 C (97.5 F) 10/21/2024 1:57 PM EDT Respiratory Rate 16 10/21/2024 1:57 PM EDT Oxygen Saturation 98% 10/21/2024 1:57 PM EDT Inhaled Oxygen Concentration - - Weight 90 kg (198 lb 6.6 oz) 10/21/2024 1:57 PM EDT Height 185.4 cm (6' 1 ) 10/21/2024 1:57 PM EDT Body Mass Index 26.18 10/21/2024 1:57 PM EDT Plan of Treatment Health Maintenance Due Date Last Done Comments [facility]-Medicare Annual Wellness (AWV) 1941 [facility]-Infant/Child/Adol SDOH Screenings 1941 [facility]-Obesity Intervention 1947 [facility]- SDOH Screenings 1959 [facility]-Adult SDOH Screenings 1959 [facility]-Pneumococcal Vaccine: 50+ Years (1 of 2 - PCV) 1960 [facility]-Zoster Vaccines (1 of 2) 1960 [facility]-RSV Vaccine: 60+ Years or (1 - 1-dose 75+ series) 2016 [facility]-Depression Screening 02/24/2023 02/24/2022 [id number] Vaccine ( - season) 2024 05/06/2021, 08/04/2020, 07/07/2020 [facility]-Influenza Vaccine (#1) 2025 07/02/2015 [facility]-DTaP,Tdap,and Td Vaccines (3 - Td or Tdap) 11/03/2027 11/02/2017, 03/10/2016, 09/04/1996 [facility]-Hepatitis A Vaccines Aged Out 018, 11/22/2017 No longer eligible based on patient's age to complete this topic [facility]-Diabetes: Hemoglobin A1C Discontinued 03/14/2022 HPV Vaccines Aged Out No longer eligi ble based on patient's age to complete this topic [facility]-HIB Vaccines Aged Out No longer e ligible based on patient's age to complete this topic [facility]-IPV Vaccines Aged Out No longer e ligible based on patient's age to complete this topic [facility]-Rotavirus Vaccines Aged Out No lo nger eligible based on patient's age to complete this topic Medical Devices Implanted Type Area Catcher Plug Device Identifier Shelf Expiration Date Model / Serial / Lot Stent Graft Iliac [id number] [employer] - [id number] - [id number] Implanted:Qty: 1 on 01/17/2022 by Romulo Johnson MD at [facility] N/A: Arterial [employer]-[id number] 05/15/2023 [id number] / [id number] / [id number] Stent Graft Iliac [id number] [employer] - [id number] - [id number] Implanted:Qty: 1 on 01/17/2022 by Romulo Johnson MD at [facility] N/A: Arterial [employer]-[id number] 09/15/2024 [id number] / [id number] / [id number] Procedures Procedure Name Priority Date/Time Associated Diagnosis Comments HEMOGLOBIN A1C Routine 03/14/2022 4:05 AM EDT from Last 3 Months or Most Recently Relevant to Health Maintenance Results * (ABNORMAL) Hemoglobin A1c (03/14/2022 4:05 AM EDT) Hemoglobin A1c 5.7(H) <5.7 % 03/14/2022 5:05 AM EDT [facility] Blood Blood sample taken from central line / Unknown Venipuncture / Unknown 03/14/2022 4:05 AM EDT 03/14/2022 4:17 AM EDT Narrative [facility] - 03/14/2022 5:05 AM EDT HA1C Interpretive Data: Diagnosis of Diabetes: Diabetic > or = 6.5% Pre-diabetic 5.7 to 6.4% Non-diabetic < or = 5.6% Glycemic Targets for Type I and Type II Diabetics: Non- Adults <7.0% Adults <6.0% Children and Adolescents <7.5% Source: [place] [employer]. Standards of medical care in diabetes,2017. Diabetes Care.2017:40 (suppl 1):S1-S135. HbA1c assay performed by an ion-exchange chromatography method that is certified traceable to the DCCT. us Svetlana Rendon MD LAB BLOOD ORDERABLES [facility] [address] [place] [address] from Last 3 Months or Most Recently Relevant to Health Maintenance Insurance [id number] [id number] [employer] Advance Directives * Full Code (Latest Code Status on File) Date Activated Date Inactivated Comments 03/13/2022 3:05 PM 03/22/2022 5:05 PM Question Answer Comments Patient has decision-making capacity? Yes Care Teams Medical Care Manager Relationship Specialty Start Date End Date Rancho Sprague MD [address] [place] [address] [address] [place] [address] PCP - General 01/17/22
[2025-03-05 16:59] LABS: Alanine Aminotransferase 13 U/L (12-78); Albumin Level 4.4 g/dl (3.5-5.0); Albumin/Globulin Ratio 1.1 (1.1-1.8); Alkaline Phosphatase 112 U/L (38-126); Anion Gap 22.8 mEq/L (5-15); Aspartate Amino Transferase 21 U/L (17-59); Bilirubin,Total 0.6 mg/dl (0.2-1.3); Calcium 10.4 mg/dl (8.4-10.2); Carbon Dioxide 14 mmol/L (22.0-30.0); Chloride 104 mmol/L (98-107); Creatinine Clearance Estimated 9 mL/min (50-200); Estimated Glomerular Filt Rate 9 ml/min (>60); GFR (African American) 10 ML/MIN (>60); Globulin 4.1 g/dL (1.3-3.2); Glucose 172 mg/dl (74-100); Potassium 4.8 mmoL/L (3.5-5.1); Sodium 136 mmol/L (136-145); Total Protein,Serum 8.5 g/dl (6.3-8.2); Uric Acid 7.4 mg/dl (3.5-8.5)
[2025-03-05] MEDS: 0.9 % SODIUM CHLORIDE 1000ML 1,000 ML 999 ML IV (17:15)
[2025-03-05 17:16] LABS: Lactate Venous 1.6 mmol/L (0.4-2.0); VBG HCO3 17.4 mmol/L (23-30); VBG PCO2 40.6 mmol/L (35-51); VBG PH 7.25 mmol/L (7.31-7.41); VBG PO2 33.2 mmol/L (28-40)
[2025-03-05] MEDS: PIPERACILLIN/TAZO 3.375 GM in 0.9 % SODIUM CHLORIDE 50 ML IV (17:16)
[2025-03-05 17:33] LABS: Blood Urea Nitrogen 139 mg/dl (9-20)
[2025-03-05 17:34] LABS: Creatinine,Serum 6.30 mg/dl (0.66-1.25)
--- NOTE | 2025-03-05 17:39 | HMH.ITSTN ---
per Yordy, hold off on scans due to low GFR
[2025-03-05 17:48] LABS: Microscopic, Urine URINE MICROSCOPIC (MICROSCOPIC)
[2025-03-05 17:52] LABS: Bilirubin,Urine Negative (Negative); Color,Urine YELLOW (Yellow); Glucose,Urine (UA) Negative (Negative); Ketones,Urine Negative (Negative); Leukocyte Esterase,Urine 2+ (Negative); PH,Urine 5.5 (5.0-8.5); Protein,Urine 1+ (Negative); Specific Gravity, Urine 1.020 (1.005-1.030); Urobilinogen,Urine 0.2 EU/dl (0.2)
--- NOTE | 2025-03-05 17:52 | PC.NURSE ---
spoke with [facility] manager pharmacy. okayed to give vanc dosage despite kidney function. notified
[2025-03-05] MEDS: VANCOMYCIN/WATER FOR INJ (PEG) 1.5 GM/300 ML PIGGYBACK IV (17:55)
--- NOTE | 2025-03-05 17:56 | PC.NURSE ---
Calling [facility] for Oncology records
[2025-03-05 17:58] LABS: Lipase 81 U/L (23-300)
[2025-03-05 18:04] LABS: Magnesium 2.6 mg/dl (1.6-2.3)
[2025-03-05 18:22] LABS: NT Pro Brain Natriuretic Pep. 1840 pg/mL (0-450)
--- NOTE | 2025-03-05 18:23 | CT_ITS ---
PROCEDURE INFORMATION: Exam: CT Head Without Contrast Exam date and time: 03/05/2025 6:41 PM Age: 84 years old Clinical indication: Screening exam; Additional info: Metastatic workup TECHNIQUE: Imaging protocol: Computed tomography of the head without contrast. Radiation optimization: All CT scans at this facility use at least one of these dose optimization techniques: automated exposure control; mA and/or kV adjustment per patient size (includes targeted exams where dose is matched to clinical indication); or iterative reconstruction. COMPARISON: No relevant prior studies available. FINDINGS: Brain: Moderate generalized cerebral/cerebellar atrophy. Mild periventricular white matter hypodensities which are nonspecific but most commonly associated with chronic microvascular ischemia in this age group. The IACs are grossly normal. No extra-axial fluid collections. No evidence of acute intracranial hemorrhage. Cerebral/cerebellar velásquez-white matter differentiation is well maintained. 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 7 mm chronic lacunar infarct in the left cerebellar hemisphere. No intracranial mass lesions. No midline shift or herniation. Cerebral ventricles: Mild compensatory ventriculomegaly secondary to central atrophy. Pituitary gland and sella: The sella is grossly normal. Paranasal sinuses: Visualized paranasal sinuses are clear. Mastoid air cells: Visualized mastoid air cells are clear. Orbital cavities: No acute intraorbital findings. Prior bilateral ocular cataract surgery. Bones: Mildly displaced bilateral nasal bone fractures with about 2 mm rightward displacement, potentially chronic given the absence of local soft tissue swelling, correlate clinically. Soft tissues: No acute soft tissue findings. Vasculature: Severe calcific atherosclerosis. No asymmetric vascular hyperdensities suggestive of thrombosis are identified. IMPRESSION: 1. No evidence of intracranial metastasis by noncontrast CT. Pre and postcontrast brain MRI would allow more sensitive/specific assessment if clinically indicated. 2. No acute intracranial process. No intracranial hemorrhage or mass effect. 3. Atrophy and microvascular changes consistent with advanced age. Small chronic cerebellar infarcts. 4. Severe calcific atherosclerosis. 5. Bilateral mildly displaced nasal bone fractures, possibly chronic given the absence of local soft tissue swelling, correlate clinically.
--- NOTE | 2025-03-05 18:23 | CT_ITS ---
PROCEDURE INFORMATION: Exam: CT Neck Without Contrast Exam date and time: 03/05/2025 6:43 PM Age: 84 years old Clinical indication: Dysphagia / difficulty swallowing; Additional info: HX of lip CA, dysphagia TECHNIQUE: Imaging protocol: Computed tomography of the neck without contrast. Radiation optimization: All CT scans at this facility use at least one of these dose optimization techniques: automated exposure control; mA and/or kV adjustment per patient size (includes targeted exams where dose is matched to clinical indication); or iterative reconstruction. COMPARISON: CT HEAD/BRAIN WO CON 03/05/2025 6:41 PM FINDINGS: Brain: No acute intracranial findings. Small chronic infarcts in the cerebellum again noted. Severe calcific atherosclerosis in the carotid bulbs and proximal intracranial arterial segments. Orbital cavities: Partially visualized orbits demonstrate no acute abnormality. Paranasal sinuses: The visualized paranasal sinuses are clear. Mastoid air cells: The mastoid air cells are clear. Salivary glands: The parotid glands are unremarkable. The bilateral submandibular glands are atrophic in appearance, without acute abnormality. Pharynx: The parapharyngeal spaces are unremarkable. The nasopharynx is unremarkable. The oropharynx is unremarkable. The hypopharynx is unremarkable. Larynx: Normal epiglottis. Visualized larynx is unremarkable. Thyroid: The visualized thyroid gland is unremarkable. Trachea: The visualized trachea is unremarkable. Lungs: Minimal pleuroparenchymal scarring in the pulmonary apices bilaterally. Esophagus: The visualized proximal esophagus is unremarkable. Lymph nodes: No adenopathy. Bones/joints: Bilateral nasal bone fractures with 1-2 mm rightward displacement of the distal fragments, probably chronic given the lack of overlying soft tissue swelling although correlate clinically. Osteopenia. Moderate cervical spondylosis. Mild canal stenosis C5-C6. Multilevel bilateral cervical neural foraminal stenoses. TMJs are well aligned. Severe bilateral TMJ osteoarthritic changes. The infratemporal fossae and moss bleacher spaces are unremarkable. Soft tissues: No significant neck soft tissue swelling is appreciated. No hematoma. Other findings: No foreign body. IMPRESSION: 1. No acute findings. 2. Mildly displaced bilateral nasal bone fractures, probably chronic given the lack of adjacent soft tissue swelling although correlate clinically. 3. Additional nonemergent findings detailed above.
--- NOTE | 2025-03-05 18:23 | CT_ITS ---
PROCEDURE INFORMATION: Exam: CT Chest Without Contrast; Diagnostic Exam date and time: 03/05/2025 6:45 PM Age: 84 years old Clinical indication: Other: Metastatic workup, SOA failure to thrive TECHNIQUE: Imaging protocol: Diagnostic computed tomography of the chest without contrast. Radiation optimization: All CT scans at this facility use at least one of these dose optimization techniques: automated exposure control; mA and/or kV adjustment per patient size (includes targeted exams where dose is matched to clinical indication); or iterative reconstruction. COMPARISON: CT CHEST WO [facility] 11/26/2021 3:52 AM FINDINGS: Lungs: No acute infiltrates.. Pleural spaces: Unremarkable. No pneumothorax. No pleural effusion. Heart: Unremarkable. No cardiomegaly. No pericardial effusion. Coronary arteries: Three-vessel coronary artery calcifications. Lymph nodes: Unremarkable. No enlarged lymph nodes. Vasculature: Unremarkable. No aortic aneurysm. Bones/joints: Unremarkable. No acute fracture. Soft tissues: Unremarkable. IMPRESSION: No CT evidence for metastatic disease to the chest
--- NOTE | 2025-03-05 18:23 | CT_ITS ---
PROCEDURE INFORMATION: Exam: CT Abdomen And Pelvis Without Contrast Exam date and time: 03/05/2025 6:48 PM Age: 84 years old Clinical indication: Other: Metastatic workup, concern for urinary obstruction TECHNIQUE: Imaging protocol: Computed tomography of the abdomen and pelvis without contrast. Radiation optimization: All CT scans at this facility use at least one of these dose optimization techniques: automated exposure control; mA and/or kV adjustment per patient size (includes targeted exams where dose is matched to clinical indication); or iterative reconstruction. COMPARISON: CT ABDOMEN PELVIS WO CON 11/26/2021 3:55 AM FINDINGS: Tubes, catheters and devices: Funes catheter is present. Lungs: The visualized lung bases demonstrate no focal infiltrates or pleural effusions. Coronary arteries: Three-vessel coronary artery calcifications. Liver: The liver appears within normal limits. Gallbladder and biliary ducts: Trace gallstones. Pancreas: Normal. No ductal dilation. Spleen: The spleen is normal. Adrenal glands: Normal. No mass. Kidneys and ureters: Simple cyst right kidney lower pole measures 2.8 cm. There are couple of tiny 1 mm stones within the left kidney. Stomach and bowel: Unremarkable. No obstruction. No mucosal thickening. Appendix: No evidence of appendicitis. Intraperitoneal space: Unremarkable. No free air. No significant fluid collection. Vasculature: Severe vascular calcifications throughout the celiac trunk, there is dilation of the celiac artery proximally. Given the degree of calcification query whether this could be post stenotic dilation due to significant stenosis at the celiac trunk. However can not evaluate on this noncontrast exam. Lymph nodes: Unremarkable. No pathologically enlarged lymph nodes are identified. Urinary bladder: Bladder is otherwise normal. There is a small amount of intraluminal air consistent with instrumentation. Reproductive: The prostate gland appears normal. Bones/joints: Unremarkable. No acute fracture. Soft tissues: Unremarkable. IMPRESSION: 1. No CT evidence for metastatic disease. 2. Trace gallstones. 3. Simple cyst right kidney lower pole measures 2.8 cm. There are couple of tiny 1 mm stones within the left kidney. 4. Severe vascular calcifications throughout the celiac trunk, there is dilation of the celiac artery proximally. Given the degree of calcification query whether this could be post stenotic dilation due to significant stenosis at the celiac trunk. However can not evaluate on this noncontrast exam. COMMENTS: Consistent with the [place] [employer]'s Incidental Findings Committee white paper (J Am Yamilet Radiol 2018): Any incidental renal lesion less than 1 cm or classified as too small to characterize, or any incidental cystic renal lesion characterized as simple-appearing, is likely benign. No follow-up imaging is recommended for these lesions per consensus recommendations based on imaging criteria.
--- NOTE | 2025-03-05 18:29 | PC.NURSE ---
[facility]
[2025-03-05 18:47] LABS: WBC,Urine TNTC #/hpf (0-3)
[2025-03-05 18:48] LABS: Bacteria,Urine 2+ /lpf
--- NOTE | 2025-03-05 18:50 | PC.NURSE ---
Qasim Scales [facility] at [facility].
--- NOTE | 2025-03-05 18:55 | PC.NURSE ---
Dr. Hoover from the [place] has accepted patient. Waiting on a room assignment.
[2025-03-05 21:58] LABS: Hepatitis C Ab Qual. W/ RFX NEGATIVE (Negative)
[2025-03-06 19:09] LABS: Acinetobacter calcoaceticus-ba Not Detected; Bacteroides fragilis Not Detected; Candida auris Not Detected; Candida glabrata Not Detected; Enterobacterales Not Detected; Enterococcus faecalis Not Detected; Enterococcus faecium Not Detected; Klebsiella aerogenes Not Detected; Klebsiella pneumoniae grp Not Detected; Proteus spp. Not Detected; Salmonella spp. Not Detected; Serratia marcescens Not Detected; Staphylococcus epidermidis Not Detected; Staphylococcus lugdunensis Not Detected; Staphylococcus spp. Detected; Stenotrophomonas maltophilia Not Detected; Streptococcus agalactiae(GrpB) Not Detected; Streptococcus pyogenes Group A Not Detected; Streptococcus spp. Not Detected
--- NOTE | 2025-03-06 23:07 | PC.NURSE ---
spoke with DONNY Dai and blood culture results given
--- NOTE | 2025-03-07 08:28 | PC.NURSE ---
Urine culture results faxed to [facility] at [phone]
== END 2025-03-05 20:36 | disposition other institution (70) ==
PROVIDERS: Physician Assistant; Emergency Provider Emergency Medicine; PCP Family Medicine
DX: A41.9 Sepsis, unspecified organism (principal); N17.9 Acute kidney failure, unspecified; R62.7 Adult failure to thrive; C80.1 Malignant (primary) neoplasm, unspecified
CPT/HCPCS: 51702; 70450; 70490; 71250; 74176; 80053; 81001; 82803; 83605; 83615; 83690; 83735; 83880; 84550; 85025; 86803; 87040; 87077; 87086; 87088; 87154; 87186; 87389; 93005; 96361; 96365; 96367; 99285; J2543; J3375; J7030

== ENCOUNTER 2025-03-20 15:24 | Emergency (ER) | payer OTHER, SELFPAY ==
[2025-03-20] VITALS (14 sets, daily range): BP systolic 77–107; BP diastolic 46–64; PULSE 60–87; RESP 12–18; TEMP 36.6–37; O2SAT 93–100; BMI 23.4
--- OUTSIDE RECORDS SUMMARY | 2025-03-20 15:52 | XMS_ITS ---
Author Organization [facility] Address [address] [place] [address] Care Team Providers Care Behavior Management Specialist Name Role Phone Rancho Sprague MD Primary Care Provider [phone] Active Problems Problem Noted Date Diagnosed Date [...] artery disease of n ative artery of [place] heart with stable angina pectoris 01/09/2022 Hyperlipidemia [...] type, unspecified whether angina present, unspecified whether [place] or transplanted heart 03/13/2022 03/13/2022
--- OUTSIDE RECORDS SUMMARY | 2025-03-20 15:52 | XMS_ITS | Clinical Summary ---
Author Organization [facility] Address [address] 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 Resolved Problems Problem Noted Date Diagnosed Date Resolved Date Coronary artery disease, uns pecified vessel or lesion type, unspecified whether angina present, unspecified whether zuni or transplanted heart 03/13/2022 03/13/2022 Family History [...] Done Comments [facility]-Medicare Annual Wellness (AWV) 1941 [facility]-/Child/Adol SDOH Screenings 1941 [facility]-Obesity Intervention 1947 [facility]- SDOH Screenings 1959 [facility]-Adult SDOH Screenings 1959 [facility]-Pneumococcal Vaccine: 50+ Years (1 of 2 - PCV) 1960 [facility]-Zoster Vaccines (1 of 2) 1960 [facility]-RSV Vaccine: 60+ Years or (1 - 1-dose 75+ series) 2016 [facility]-Depression Screening 02/24/2023 02/24/2022 [id number] Vaccine (4 - season) 2025 05/06/2021, 08/04/2020, 07/07/2020 [facility]-Influenza Vaccine (#1) 2025 [...] this topic Medical Devices Implanted Type Area Tanyard Worker Device Identifier Shelf Expiration Date Model / Serial / Lot Stent Graft Iliac [id number] - [id number] - [id number] Implanted:Qty: 1 on 01/17/2022 by Romulo Johnson MD at [facility] N/A: Arterial [employer]-[id number] 05/15/2023 [id number] / [id number] / [id number] Stent Graft Iliac [id number] [employer]ah[employer]x - [id number] - [id number] Implanted:Qty: 1 on 01/17/2022 by Romulo Johnson MD at [facility] N/A: Arterial [employer]-[id number] 09/15/2024 [id number] / [id number] / [id number] Procedures Procedure Name Priority Date/Time Associated Diagnosis [...] Adults <6.0% Children and Adolescents <7.5% Source: [place] [employer]. Standards of medical care in diabetes,2017. Diabetes Care.2017:40 (suppl 1):S1-S135. HbA1c assay performed by an ion-exchange chromatography method that is certified traceable to the DCCT. us Svetlana Rendon MD LAB BLOOD ORDERABLES Ni juarez Result [facility] [address] [place] [address] from Last 3 Months or Most Recently Relevant to Health Maintenance Insurance [employer] Advance Directives * Full Code (Latest Code Status on File) Date Activated Date Inactivated Comments 03/13/2022 3:05 PM 03/22/2022 5:05 PM Question Answer Comments Patient has decision-making capacity? Yes Care Teams Compensator Relationship Specialty Start Date End Date Rancho Sprague MD [address] [place] [address] [address] [place] [address] PCP - General 01/17/22
--- OUTSIDE RECORDS SUMMARY | 2025-03-20 15:52 | XMS_ITS | Encounter Summary ---
Author Organization Healthcare Address [address] [place] [address] Care Team Providers Care Ham Rolling Machine Operator Name Role Phone Rancho Sprague MD Primary Care Provider [phone] Encounter Details Date Type Department Care Team (Late st Contact Info) Description 10/21/2024 Lab Requisition [facility] [address] [place] [address] Will Phillips MD [address] [facility] [address] [place] [phone] Diseases of lips Social History Tobacco [...] EDT) Case Report Sugical Pathology Consult Case: [id number] Authorizing Provider: Will Phillips MD Collected: 10/21/2024 1013 Ordering Location: [facility] Lab Received: 10/21/2024 1013 Pathologist: Laxmi Vargas MD Specimen: Upper Lip, Right Side, [id number] 10/22/2024 8:15 AM EDT [facility] Final Diagnosis A. SKIN, RIGHT INFERIOR SONA LIP; SHAVE BIOPSY ([id number]; 05/26/24): - SQUAMOUS CELL CARCINOMA, INVASIVE, MODERATELY DIFFERENTIATED. - TUMOR EXTENDS TO DEEP AND PERIPHERAL SHAVE MARGINS. B. SKIN, RIGHT NASAL ALA; SHAVE BIOPSY ([id number]; 05/26/24): - BASAL CELL CARCINOMA WITH ULCERATION EXTENDING TO DEEP AND ONE PERIPHERAL MARGIN. 10/22/2024 8:15 AM EDT [facility] at 0814 EDT Clinical Information K13.0 - Diseases of lips [ICD-10-CM] 10/22/2024 8:15 AM EDT [facility] Gross Description A. [id number] Received along with a corresponding pathology report from [facility] are 2 slide(s) labeled outside case: [id number] collected on 05/26/24. 10/22/2024 8:15 AM EDT [facility] Note: A resident was involved in the service. I attest I examined the relevant preparations for the specimens and confirmed the diagnosis or interpretation. 10/22/2024 8:15 AM EDT [facility] Tissue Upper lip structure / Unknown 10/21/2024 10:13 AM EDT 10/21/2024 10:13 AM EDT us Will Phillips MD LAB PATHOLOGY ORDERABLES Fin al Result [facility] [address] [place] [address] documented in this encounter Visit Diagnoses Diagnosis Diseases of lips documented in this encounter Additional Health Concerns Assessment Noted Time A fall risk assessment has been complete d for the patient 10/21/2024 1:57 PM EDT documented as of this encounter Care Teams Ham Rolling Machine Operator Relationship Specialty Start Date End Date Rancho Sprague MD [address] [place] [address] [address] [place] [address] PCP - General 01/17/22 documented as of this encounter
--- OUTSIDE RECORDS SUMMARY | 2025-03-20 15:52 | XMS_ITS ---
Author Organization Unknown Vital Signs BpStanding BpSitting BpSupine Date Temperature HeartRate Weight Hei ght Spo2 Respiration Bmi HeadCircumference FieldCount TimeRecorded NeckCircumferen ce WaistCircumference Pulse Custom 100/62 03/03 00:00 :00 97.7 170,0 6,3 21.2 5 5 03/06/2025 10:30:00 132/68 11/25 00:00 :00 98.6 76 196,0 6,3 98 24.5 7 03/06/2025 10:30:00 128/62 05/13 00:00 :00 98.6 74 205,0 6,3 98 25.6 2 7 03/06/2025 13:30:00 126/68 04/24 00:00 :00 98.6 78 205,0 6,3 98 25.6 2 7 03/06/2025 09:15:00
--- NOTE | 2025-03-20 16:04 | XR_ITS ---
FINAL REPORT CLINICAL HISTORY: short of breath FINDINGS: CHEST, 1 view COMPARISON: 11/26/2021 FINDINGS: No acute pulmonary opacity is present. There is no evidence of effusion or pneumothorax. There is evidence of prior median sternotomy, presumably from CABG. Otherwise, mediastinum is unremarkable. Heart size is normal. IMPRESSION: Unremarkable chest, status post CABG. Authenticated and ERN
[2025-03-20] MEDS: 0.9 % SODIUM CHLORIDE 1000ML 1,000 ML 999 ML IV ×3 (16:09→17:46)
[2025-03-20 16:10] LABS: Hematocrit 26.8 % (42.0-52.0); Hemoglobin 8.9 g/dL (14.1-18.0); Immature Granulocytes % 0.6 %; Mean Corpuscular HGB Conc 33.2 g/dL (31.8-35.4); Mean Corpuscular Hemoglobin 31.3 pg (27.0-31.2); Mean Corpuscular Volume 94.4 fl (80-94); Nucleated Red Blood Cells % 0 %; Platelet Count 241 K/mm3 (142-424); Red Blood Count 2.84 M/mm3 (4.60-6.20); Red Cell Distribution Width-SD 49.1 fL; White Blood Count 3.5 K/mm3 (4.8-10.8)
[2025-03-20 16:11] LABS: Chloride 100 mmol/L (98-107)
[2025-03-20 16:12] LABS: Albumin Level 3.8 g/dl (3.5-5.0); Potassium 4.1 mmoL/L (3.5-5.1); Sodium 134 mmol/L (136-145)
[2025-03-20 16:15] LABS: Alanine Aminotransferase 32 U/L (12-78); Albumin/Globulin Ratio 1.1 (1.1-1.8); Alkaline Phosphatase 96 U/L (38-126); Anion Gap 18.1 mEq/L (5-15); Aspartate Amino Transferase 41 U/L (17-59); Bilirubin,Total 0.4 mg/dl (0.2-1.3); Calcium 9.5 mg/dl (8.4-10.2); Carbon Dioxide 20 mmol/L (22.0-30.0); Creatinine,Serum 3.00 mg/dl (0.66-1.25); Estimated Glomerular Filt Rate 20 ml/min (>60); GFR (African American) 24 ML/MIN (>60); Globulin 3.4 g/dL (1.3-3.2); Glucose 118 mg/dl (74-100); Lipase 329 U/L (23-300); Magnesium 2.2 mg/dl (1.6-2.3); Total Protein,Serum 7.2 g/dl (6.3-8.2)
--- NOTE | 2025-03-20 16:18 | ECG_ITS ---
APPROVED REPORT Exam: Resting ECG HR:62 bpm ECG Measurements Heart Rate 62 AXES CO 274 P -76 QRSd 145 QRS 66 QT 425 T 52 QTc 431 Conclusion SINUS RHYTHM WITH FIRST DEGREE AV BLOCK RIGHT BUNDLE BRANCH BLOCK [120+ ms QRS DURATION, UPRIGHT V1, 40+ ms S IN I/aVL/V4/V5/V6] ABNORMAL ECG UNCONFIRMED REPORT NSR. No ST elevation or depression. 1st degree AV block Electronically signed by : FRANKLYN RICK, 03/21/2025 15:46:44
[2025-03-20 16:20] LABS: Creatinine Clearance Estimated 20 mL/min (50-200)
[2025-03-20 16:21] LABS: Blood Urea Nitrogen 88 mg/dl (9-20)
[2025-03-20 16:27] LABS: Troponin I 0.02 ng/ml (0.00-0.034)
--- NOTE | 2025-03-20 18:01 | ED_ITS ---
<Statement entered by Bernardo Saunders MD - 03/21/25 03:02> I was consulted by the SARITA, and we discussed the complexity of the problems being addressed. I approve the treatment and management plan for this patient's care in the emergency department, thus performing a substantive portion of the medical decision making. Bernardo Saunders MD Discharge Plan Disposition Patient Disposition: Xfer Other Prescriptions Prescriptions: No Action lisinopril 10 MG tablet 20 mg PO DAILY rosuvastatin 40 MG tablet 40 mg PO DAILY Referrals Follow up/Referrals: Lauren Sprague MD [Primary Care Provider, Medical] - See instructions Clinical Impressions Clinical Impression: Acute renal failure, Acute hypotension Print Language Print Language: Moroccan Discharge ED Provider: Bernardo Saunders General Adult HPI General Chief complaint: Dizziness Stated complaint: blood pressure up/down Time Seen by Provider: 03/20/25 15:45 Mode of Arrival: Ambulatory Source of Information: Patient Description of Symptoms (Recalled from ER Triage Doc. by RN): pt went [facility]/p and they told him to come here. said he took all of his morning meds which included b/p meds. he also took 2 pain pills, he thinks they were norco 5mg. said b/p has been low for the last couple of days had his last round of chemo 2 days ago. History of Present Illness HPI narrative: 84-year-old male presents to the ED today for complaint of low blood pressure. Patient did go to urgent treatment center for low blood pressure and they told him to come here to the ED. He did take all of his morning meds which included blood pressure medicine and pain pills. His blood pressure has been low over the last couple of days. He has been concerned about his low blood pressure. He has been taking his readings and is worried about it. He says he feels okay with exception of some fatigue. He denies any chest pain or shortness of breath. No fevers or chills. No other symptoms at this time. 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 [facility]. Related Data Home Medications ?Medication ?Instructions ?Recorded ?Confirmed lisinopril 10 mg tablet 20 mg PO DAILY Hypertension 11/26/21 11/26/21 rosuvastatin 40 mg tablet 40 mg PO DAILY High choleste rol 11/26/21 11/26/21 Allergies Allergy/AdvReac Type Severity Reaction Status Date / Time No Known Allergies Allergy Verified 11/12/21 18:07 [facility] Disclaimer: The information contained in this section may have been updated after the patient was seen, as this information can be updated by other users. Social History Smoking Status: Former smoker alcohol intake: never current occupational status: other Travel in the last 8 weeks?: None Have you lived/traveled outside US in past 30 days?: No Contact w/someone who lives/traveled outside US past 30 days?: No Exposure to someone with infectious disease in past 14 days?: No Do you have a fever (greater than 100.4 F or 38 C)?: No Have you tested positive for COVID-19?: No Exposed to someone with COVID-19 in past 14 days?: No Do you have a sore throat?: No Do you have a cough?: No Do you have any weakness?: No Do you have any diarrhea?: No Are you experiencing any unusual bleeding?: No Do you have any muscle aches/pain?: No Do you have any abdominal pain?: No Are you experiencing loss of taste or smell?: No Other Medical History Have you received the Flu Vaccine for this season: Yes Have you received the Pneumonia Vaccine: Yes ROS Obtained: Yes Systems reviewed as appropriate & no additional complaints except as documented Constitutional Constitutional: Reports as per HPI Physical Exam General General appearance: alert and in no apparent distress Head Head exam: normocephalic Eye Eye exam: Present PERRL and EOMI ENT ENT exam: Present normal oropharynx and mucous membranes moist Neck Neck exam: Present full ROM and trachea midline Respiratory Respiratory exam: Present normal lung sounds bilaterally Cardiovascular Cardiovascular exam: Present regular rate, normal rhythm, normal heart sounds, +S1 and +S2 Abdominal Exam Abdominal exam: Present soft and normal bowel sounds Extremities Exam Extremities exam: Present normal inspection, full ROM and normal capillary refill Neurological Exam Neurological exam: Present alert and oriented X3 Skin Skin exam: Present warm, dry and intact Medical Decision Making Medical Records Screening: Per USPSTF and CDC recommendations, given the prevalence of disease in our region, it is our hospital?s policy to screen for HIV and viral Hepatitis for all patients aged 18 and over and those with ongoing risk factors. Yaakov Inquiry Pt receiving controlled substance: No Yaakov was queried for this patient: No Vital Signs: 03/20/25 15:57 03/20/25 16:00 03/20/25 16:04 Temperature Temperature Source Pulse Rate 68 68 65 Pulse Rate [Right Brachial] Respiratory Rate 17 17 15 Blood Pressure 83/47 L 78/47 L 77/50 L Blood Pressure [Right Arm] Blood Pressure Mean 57 56 55 Blood Pressure Mean [Right Arm] 02 Sat by Pulse Oximetry 99 100 100 Oxygen Delivery Method Room Air Room Air Room Air 03/20/25 16:05 03/20/25 16:10 03/20/25 16:30 Temperature 97.8 F Temperature Source Oral Pulse Rate 68 60 Pulse Rate [Right Brachial] 78 Respiratory Rate 15 18 16 Blood Pressure 80/46 L 83/49 L Blood Pressure [Right Arm] 93/51 L Blood Pressure Mean 54 57 Blood Pressure Mean [Right Arm] 65 02 Sat by Pulse Oximetry 100 100 97 Oxygen Delivery Method Room Air Room Air Room Air 03/20/25 16:50 03/20/25 17:00 03/20/25 17:30 Temperature Temperature Source Pulse Rate 65 65 64 Pulse Rate [Right Brachial] Respiratory Rate 12 14 17 Blood Pressure 89/54 L 80/53 L 91/50 L Blood Pressure [Right Arm] Blood Pressure Mean 65 59 63 Blood Pressure Mean [Right Arm] 02 Sat by Pulse Oximetry 97 95 94 L Oxygen Delivery Method Room Air Room Air Room Air 03/20/25 18:00 03/20/25 18:18 03/20/25 18:30 Temperature Temperature Source Pulse Rate 68 73 80 Pulse Rate [Right Brachial] Respiratory Rate 13 17 18 Blood Pressure 92/48 L 97/56 L 99/56 L Blood Pressure [Right Arm] Blood Pressure Mean 68 64 Blood Pressure Mean [Right Arm] 02 Sat by Pulse Oximetry 93 L 95 95 Oxygen Delivery Method Room Air Room Air 03/20/25 19:22 Temperature Temperature Source Pulse Rate Pulse Rate [Right Brachial] Respiratory Rate Blood Pressure 99/55 L Blood Pressure [Right Arm] Blood Pressure Mean Blood Pressure Mean [Right Arm] 02 Sat by Pulse Oximetry 97 Oxygen Delivery Method Room Air Lab Data Lab Results 03/20/25 : WBC 3.5 L, RBC 2.84 L, Hgb 8.9 L, Hct 26.8 L, MCV 94.4 H, MCH 31.3 H, MCHC 33.2, RDW 14.4, Plt Count 241, MPV 9.2, Neut % (Auto) 73.0, Lymph % (Auto) 13.2, [place] % (Auto) 11.5 H, Eos % (Auto) 1.1, Baso % (Auto) 0.6, Neut # (Auto) 2.6, Lymph # (Auto) 0.5 L, [place] # (Auto) 0.4, Eos # (Auto) 0.0, Baso # (Auto) 0.0, Total Counted 50, Neutrophils % (Manual) 70, Lymphocytes % (Manual) 24, Monocytes % (Manual) 6, Platelet Estimate Normal, RBC Morphology Normal, Sodium 134 L, Potassium 4.1, Chloride 100, Carbon Dioxide 20 L, Anion Gap 18.1 H, BUN 88 H, Creatinine 3.00 H, Estimated Creat Clear 20, Estimated GFR 20 L, Est GFR ( Amer) 24 L, Glucose 118 H, Calcium 9.5, Magnesium 2.2, Total Bilirubin 0.4, AST 41, ALT 32, Alkaline Phosphatase 96, Troponin I 0.02, Total Protein 7.2, Albumin 3.8, Globulin 3.4 H, Albumin/Globulin Ratio 1.1, Lipase 329 H 03/20/25 Unknown 03/20/25 Unknown Orders (Tests/Meds): ED MEDICATIONS Discontinued Medications Generic Name Dose Route Start Last Admin Trade Name Nelsonq PRN Reason Stop Dose Admin Sodium Chloride 1,000 mls @ 999 mls/hr 03/20/25 16:04 03/20/25 17:01 Sod Chlor 0.9% 1000ml Bag IV 03/20/25 17:04 Infused .Q1H1M ONE Infusion Sodium Chloride 1,000 mls @ 999 mls/hr 03/20/25 16:54 03/20/25 17:52 Sod Chlor 0.9% 1000ml Bag IV 03/20/25 17:54 Infused .Q1H1M ONE Infusion Sodium Chloride 1,000 mls @ 999 mls/hr 03/20/25 17:39 03/20/25 18:52 Sod Chlor 0.9% 1000ml Bag IV 03/20/25 18:39 Infused .Q1H1M ONE Infusion ORDERS Category Date Time Status Chest XR -- portable [XR chest portable] Stat Exams 03/20/25 16:04 Completed CBC [Complete Blood Count Auto Diff] Stat Lab 09/19/25 Completed Comprehensive Metabolic Panel Stat Lab 03/20/25 Completed Lipase Stat Lab 03/20/25 Completed Magnesium Stat Lab 03/20/25 Completed Trop I [Troponin I] Stat Lab 03/20/25 Completed Troponin I Q3H Lab 03/20/25 19:15 Ordered Troponin I Q3H Lab 03/20/25 22:15 Ordered Medical Decision Narrative: 84-year-old male presents to the ED today for complaint of low blood pressure. He states he is tired as well. Patient is afebrile but hypotensive at this time. He does appear well. Initial workup will include labs, chest x-ray. Initial interventions will include IV fluids to raise blood pressure. I have discussed this case with both Dr. Vallecillo and Dr. Jefferson. His BUN is 88, his BUN in the past has been more elevated than that. I have discussed with patient several times he says he has never been on dialysis. He does self cath. He says he does this 3 times a day. He has been [facility] recently. His blood pressure has been responsive to the 2 L of fluid he has gotten. Currently it is 91/50. [facility] and elevated kidney function. The doctor on-call accepted the patient to med/tele. They will call back with a bed. Dr. Aguillon was the accepting physician. Critical Care Critical Care Time Critical Care Time: No
[2025-03-20 18:43] LABS: RBC Morphology Normal; Total Cells Counted 50
--- NOTE | 2025-03-20 18:59 | PC.NURSE ---
[facility]
--- NOTE | 2025-03-20 20:57 | PC.NURSE ---
Report called to DONNY Mendoza at [facility].
== END 2025-03-20 22:15 | disposition other institution (70) ==
PROVIDERS: Nurse Practitioner; Emergency Provider Student in an Organized Health Care Education/Training Program; PCP Family Medicine
DX: I95.9 Hypotension, unspecified (principal); I44.0 Atrioventricular block, first degree; I45.10 Unspecified right bundle-branch block; N17.9 Acute kidney failure, unspecified; Z85.818 Personal history of malignant neoplasm of other sites of lip, oral cavity, and pharynx; Z92.21 Personal history of antineoplastic chemotherapy; Z87.891 Personal history of nicotine dependence
CPT/HCPCS: 71045; 80053; 83690; 83735; 84484; 85007; 85025; 93005; 96360; 96361; 99285; J7030